=== PATIENT | male | born 1955 | race Caucasian/White ===

== ENCOUNTER → 2017-01-21 | Outpatient (CLI) | payer BC, OTHER ==
[~2017-01-21] MED LIST: ATOR-22 PO; GEMF600T3 PO; MULT-506 PO; PRED-301 PO; SULF500T36 PO
== END | disposition home or self-care (01) ==
LOC: C.LABSPEC 15:12
PROVIDERS: ATTEND Internal Medicine
DX: Z12.11 Encounter for screening for malignant neoplasm of colon (principal)

== ENCOUNTER → 2017-07-21 | Outpatient (CLI) | payer BC, OTHER ==
[2017-07-21 13:24] LABS: BLOOD UREA NITROGEN 16 mg/dl (7-18); BUN/CREATININE RATIO 16.9 (10-20); CALCIUM 9.2 mg/dl (8.5-10.1); CARBON DIOXIDE 28 mmol/L (21-32); CHLORIDE 101 mmol/L (98-107); CHOLESTEROL 149 mg/dl (0-200); CREATININE 0.94 mg/dl (0.60-1.40); GLUCOSE 100 mg/dl (70-99); POTASSIUM 4.3 mmol/L (3.5-5.1); SODIUM 137 mmol/L (136-145); TRIGLYCERIDES 113 mg/dl (0-150); VERY LOW DENSITY LIPOPROT CALC 23 mg/dl
[2017-07-21 13:26] LABS: CHOLESTEROL/HDL RATIO 4.8; HDL CHOLESTEROL 31 mg/dl
[2017-07-21 13:49] LABS: ESTIMATED AVERAGE GLUCOSE 108 mg/dl; HA1C FLAG Normal (Normal)
== END | disposition home or self-care (01) ==
LOC: C.LABSPEC 12:37
PROVIDERS: ATTEND Internal Medicine
DX: R73.9 Hyperglycemia, unspecified (principal); E78.5 Hyperlipidemia, unspecified